=== PATIENT | female | born 2000 | race Caucasian/White ===

== ENCOUNTER 2021-06-17 12:39 | Emergency (ER) | payer OTHER ==
[~2021-06-17] VITALS: Ht 172.7 cm; Wt 93.0 kg
[2021-06-17 13:03] VITALS: BP 144/78
--- NOTE | 2021-06-17 15:00 | NUR ---
21/F BIB FRIENDS WITH C/O SYNCOPE THIS MORNING. STATES SHE HAD A SYNCOPAL EPISODE IN THE SHOWER, FALLING FRONTWARD HITTING HER FACE. REDNESS NOTED TO NOSE AND CHIN. DENIES CP, DIZZINESS OR BLURRED VISION. PATIENT STATES PRIOR TO INCIDENT SHE DID NOT FEEL DIZZY, STATES "I JUST REMEMBER WAKING UP ON THE FLOOR." DENIES DRUG OR ALCOHOL USE TODAY.
[2021-06-17] MEDS ORDERED: IBUP-2213 PO (15:12)
[2021-06-17 16:10] VITALS: BP 135/79
--- NOTE | 2021-06-17 16:11 | NUR ---
Patient discharged with v/s stable. Written and verbal after care instructions ABOUT CERVICAL SPRAIN AND SYNCOPE given and explained. Patient alert, oriented and verbalized understanding of instructions. Ambulatory with steady gait. All questions addressed prior to discharge. ID band removed. Patient advised to follow up with PMD. Rx of IBUPROFEN given. Patient educated on indication of medication including possible reaction and side effects. Opportunity to ask questions provided and answered.
== END 2021-06-17 16:10 | disposition home or self-care (01) ==
LOC: MED 12:39
DX: R55 Syncope and collapse (principal); Z79.899 Other long term (current) drug therapy
CPT/HCPCS: 81002; 81025; 93005; 99283